=== PATIENT | female | born 1985 | race Caucasian/White ===

== ENCOUNTER 2020-01-12 09:56 | Emergency (ER) | payer OTHER, MEDICAID, SELFPAY ==
[2020-01-12 10:14] VITALS: BP 126/63; PULSE 99; RESP 18; TEMP 36.7; O2SAT 100
--- NOTE | 2020-01-12 10:19 | ED.URI ---
HPI - URI/Sore Throat General Chief Complaint: Upper Respiratory Infection Stated Complaint: sore throat Time Seen by Provider: 01/12/20 10:28 Source: patient History of Present Illness HPI Narrative: Patient presents with a sore throat. Patient denies any other symptoms no trouble swallowing no drooling. MD elicited complaint: sore throat Related Data Allergies Allergy/AdvReac Type Severity Reaction Status Date / Time amoxicillin Allergy Joint Pain Verified 01/12/20 10:14 Review of Systems Review of Systems: Narrative: CONSTITUTIONAL: Denies fever, chills, or sweats. EYES: Denies visual changes, redness, or discharge. ENT: Denies rhinorrhea, congestion, sore throat, or otalgia. CARDIOVASCULAR: Denies chest pain, palpitations, or edema. RESPIRATORY: Denies cough or dyspnea. GASTROINTESTINAL: Denies abdominal pain, nausea, vomiting, or diarrhea. GENITOURINARY: Denies dysuria or hematuria. SKIN: Denies rash or itching. MUSCULOSKELETAL: Denies back pain, joint pain, or myalgia. NEUROLOGIC: Denies headache, numbness, or weakness. PSYCHIATRIC: Denies anxiety or depression. PMFSH Comments At time of signature, agree with nursing past medical, surgical, social and family history. There is no relevant family history pertinent to the presenting complaint Exam Narrative: Exam Narrative: GENERAL: Well-appearing, well-nourished, and in no acute distress. HEAD: Normocephalic, atraumatic. EYES: PERRLA and EOMI. ENT: Nares clear, no rhinorrhea or epistaxis. Mucous membranes moist. Mild pharyngeal erythremia able to open mouth fully no trismus no drooling no exudates NECK: Supple. CHEST: Clear to auscultation. No respiratory distress. HEART: Regular rate and rhythm. No murmur heard. Normal peripheral pulses. ABDOMEN: Soft, nontender, nondistended, normal active bowel sounds. EXTREMITIES: Normal range of motion. No edema. SKIN: Warm, dry, no rash. NEURO: No focal deficits. Alert and oriented x3. Kevin Coma Scale Eye Opening: Spontaneous 4 Kevin Coma Scale Motor: Obeys Commands 6 [place] Coma Scale Verbal: Oriented 5 Kevin Coma Scale Total 15 Course Vital Signs Vital signs: Vital Signs Temperature 36.7 C 01/12/20 10:14 Pulse Rate 99 01/12/20 10:14 Respiratory Rate 18 10/03/20 10:14 Blood Pressure 126/63 01/12/20 10:14 Pulse Oximetry 100 01/12/20 10:14 Temperature 36.7 C 01/12/20 10:14 Pulse Rate 99 01/12/20 10:14 Respiratory Rate 18 01/12/20 10:14 Blood Pressure 126/63 01/12/20 10:14 Pulse Oximetry 100 01/12/20 10:14 MDM - URI/Sore Throat Differential Diagnosis Differential diagnosis: Likely upper respiratory infection, croup, otitis media, sinusitis, viral infection, bronchitis, influenza and pharyngitis Lab Data Labs: Strep Screen Presumptive Negative *(Reference Range: Negative)* Critical Care Time Critical Care Time Critical Care Time: No Discharge Plan Discharge Clinical Impression: Pharyngitis, Strep pharyngitis Patient Disposition: Home, Self-Care Condition: Stable Instructions: Antibiotic Form, Strep Throat (DC) Additional Instructions: Increase fluids especially juices and water [id number] cough and cold medicine of your choice for your symptoms Salt water gargles, throat lozenges or throat sprays as desired change toothbrush in 3-5 days Antibiotic as directed--finished the medication It may take the antibiotic 2-3 days to control the fever/symptoms -If you have any worsening of symptoms or any other concerns please go to the ED immediately. Prescriptions: New fluticasone propionate [Flonase Allergy Relief] 50 mcg/actuation spray,suspension 2 spray NASAL BID Qty: 9.9 RF: 0 loratadine [Claritin] 10 mg tablet 10 mg PO DAILY 14 Days Qty: 14 RF: 0 azithromycin [Zithromax Z-Ramesh] 250 mg tablet See Rx Instructions .ROUTE .COMPLEX Qty: 6 RF: 0 Follow-up/Referrals: Salcido,Nilda Acosta APN [Primary
== END 2020-01-12 10:31 | disposition home or self-care (01) ==
PROVIDERS: Emergency Provider Nurse Practitioner Family; PCP Nurse Practitioner Family
DX: J02.0 Streptococcal pharyngitis (principal)
CPT/HCPCS: 87081; 87880; 99213; G0463

== ENCOUNTER 2021-05-23 10:00 | Emergency (ER) | payer OTHER, MEDICAID, SELFPAY ==
[2021-05-23 10:06] VITALS: BP 114/89; PULSE 79; RESP 16; TEMP 37.1; O2SAT 100
--- NOTE | 2021-05-23 10:12 | ED.FEMALEGU ---
HPI - Female Genitourinary General Chief complaint: Urogenital-Female Stated complaint: Urinary Problem Time Seen by Provider: 05/23/21 10:15 Source: patient and family History of Present Illness HPI Narrative: PATIENT PRESENTS WITH URINARY FREQUENCY AND VOIDING SMALL AMOUNTS. NO BURNING WITH URINATION NO GROSS HEMATURIA NO FLANK PAIN NO HX OF KIDNEY STONES. PATIENT REPORTS SHE DID A TELEHEALTH VISIT YESTERDAY AND WAS PRESCRIBED MACROBID. PATIENT CONCERNED THAT NO UA WAS ORDERED AND STATES SHE HAS CHRONIC UTI. PATIENT REPORTS NAUSEA , DENIES ANY CONCERN FOR . Related Data Allergies Allergy/AdvReac Type Severity Reaction Status Date / Time amoxicillin Allergy Joint Pain Verified 05/23/21 10:16 Review of Systems Review of Systems: CONSTITUTIONAL: Denies fever, chills, or sweats. EYES: Denies visual changes, redness, or discharge. ENT: Denies rhinorrhea, congestion, sore throat, or otalgia. CARDIOVASCULAR: Denies chest pain, palpitations, or edema. RESPIRATORY: Denies cough or dyspnea. GASTROINTESTINAL: Denies abdominal pain, nausea, vomiting, or diarrhea. GENITOURINARY: Denies dysuria or hematuria. SKIN: Denies rash or itching. MUSCULOSKELETAL: Denies back pain, joint pain, or myalgia. NEUROLOGIC: Denies headache, numbness, or weakness. PSYCHIATRIC: Denies anxiety or depression. PMFSH Comments At time of signature, agree with nursing past medical, surgical, social and family history. There is no relevant family history pertinent to the presenting complaint Exam Narrative: GENERAL: Well-appearing, well-nourished, and in no acute distress. HEAD: Normocephalic, atraumatic. EYES: PERRLA and EOMI. ENT: Nares clear, no rhinorrhea or epistaxis. Mucous membranes moist. NECK: Supple. CHEST: Clear to auscultation. No respiratory distress. HEART: Regular rate and rhythm. No murmur heard. Normal peripheral pulses. ABDOMEN: Soft, nontender, nondistended, normal active bowel sounds. NO CVA TENDERNESS EXTREMITIES: Normal range of motion. No edema. SKIN: Warm, dry, no rash. NEURO: No focal deficits. Alert and oriented x3. [place] Coma Scale Eye Opening: Spontaneous 4 [place] Coma Scale Motor: Obeys Commands 6 Kevin Coma Scale Verbal: Oriented 5 Kevin Coma Scale Total 15 Course Course Level of Care: Express Care Visit MDM - Female Genitourinary MDM Narrative Medical decision making narrative: PATIENT WAS PRESCRIBED MACROBID YESTERDAY. CONTINUE MACROBID, IF CULTURE GROWS SENSITIVITY THAT IS NOT COVERED BY MACROBID WE WILL CALL AND CHANGE ANTIBIOTIC. Differential Diagnosis Differential diagnosis: Likely urinary tract infection, bacterial vaginosis, trichomoniasis, cervicitis, ovarian cyst, vaginitis, ruptured ovarian cyst, cyst of Bartholin's gland, cystitis, dysmenorrhea and other Critical Care Time Critical Care Time Critical Care Time: No Discharge Plan Discharge Clinical Impression: Urinary tract infection Patient Disposition: Home, Self-Care Condition: Stable Instructions: Antibiotic Form, Urinary Tract Infection in Women (DC) Additional Instructions: Increase fluids especially cranberry juice and water Avoid caffeine and carbonated beverages Antibiotic as directed MACROBID PRESCRIBED PER TELEHEALTH VISIT. CULTURE WILL BE COMPLETE IN 48-72 HOURS, IF WE NEED TO CHANGE ANTIBIOTIC WE WILL NOTIFY YOU Tylenol/ibuprofen for pain or fever Follow-up with her primary care provider if further problems or concerns Recheck if you have fever over 101, nausea and vomiting -If you have any worsening of symptoms or any other concerns please go to the ED immediately. Prescriptions: New ondansetron 4 mg tablet,disintegrating 4 mg PO Q8H PRN (Reason: nausea and vomiting) Qty: 10 RF: 0 Follow-up/Referrals: PHYSICIAN NOT ON STAFF,NONSTAFF [Primary Care Provider] -
== END 2021-05-23 10:32 | disposition home or self-care (01) ==
PROVIDERS: Emergency Provider Nurse Practitioner Family
DX: N39.0 Urinary tract infection, site not specified (principal)
CPT/HCPCS: 81003; 87077; 87086; 87186; 99213; G0463

== ENCOUNTER 2022-07-28 14:16 | Emergency (ER) | payer OTHER, MEDICAID, SELFPAY ==
[2022-07-28 14:28] VITALS: BP 114/62; PULSE 74; RESP 16; TEMP 36.6; O2SAT 100
--- NOTE | 2022-07-28 15:17 | ED.URI ---
HPI - URI/Sore Throat General Chief Complaint: Upper Respiratory Infection Stated Complaint: Chest Pain/Cough Source: patient and RN notes reviewed History of Present Illness HPI Narrative: 36 yo F presents to urgent care with a cough x 1 month and chest pressure and tightness since Tuesday. Pt states on Tuesday, she felt a spasm-like pain in over her midsternal chest. Pt states the spasm last briefly but she has had these pains over the last few days, randomly. Pt denies any SOB, numbness, tingling, fevers, chills, congestion, or abdominal pain. Related Data Allergies Allergy/AdvReac Type Severity Reaction Status Date / Time amoxicillin Allergy Joint Pain Verified 05/23/21 10:16 codeine Allergy Nausea Verified 07/28/22 14:28 Review of Systems Review of Systems: Pertinent positives and pertinent negatives per HPI. PMFSH Comments At the time of my signature, I reviewed and agree with the nursing past medical, surgical, social, and family history. There is no relevant family history pertinent to the patient complaint. Exam Narrative: GENERAL: This is a well-nourished, well-developed patient, in no apparent distress. HEAD: normocephalic, atraumatic. EYES: Sclera clear/white. Vision is grossly intact. EARS: External ears normal, auditory canals clear and without drainage, TMs normal without perforation. Hearing grossly intact. NOSE: External nose normal with no obvious nasal discharge, nares without redness, no rhinorrhea. THROAT: Mucous membranes moist, posterior pharynx clear. NECK: Neck supple, non-tender without lymphadenopathy, masses or thyromegaly. CARDIOVASCULAR: Regular rate and rhythm without murmurs, gallops, or rubs. RESPIRATORY: Clear to auscultation. Breath sounds equal bilaterally. No wheezes, rales, or rhonchi. GASTROINTESTINAL: Abdomen soft, non-tender, nondistended. Bowel sounds are active. No hepato-splenomegaly, or palpable masses. No guarding. SKIN: warm, intact with no suspicious lesions or rash, good texture and turgor. NEURO: awake, alert, and oriented to person, place and time. There were no obvious focal neurologic abnormalities. EXTREMITIES: No clubbing, cyanosis, or edema. No joint tenderness, effusion, or edema noted. BACK: Nontender without deformity or crepitance. No flank tenderness. Course Course Level of Care: Express Care Visit Vital Signs Vital signs: Vital Signs Temperature 97.9 F 07/28/22 14:28 Pulse Rate 74 07/28/22 14:28 Respiratory Rate 16 07/28/22 14:28 Blood Pressure 114/62 07/28/22 14:28 Pulse Oximetry 100 07/28/22 14:28 Oxygen Delivery Room Air 07/28/22 14:28 Temperature 97.9 F 07/28/22 14:28 Pulse Rate 74 07/28/22 14:28 Respiratory Rate 16 07/28/22 14:28 Blood Pressure 114/62 07/28/22 14:28 Pulse Oximetry 100 07/28/22 14:28 Oxygen Delivery Room Air 07/28/22 14:28 Reviewed MDM - URI/Sore Throat MDM Narrative Medical decision making narrative: Take the steroids as directed. May use the inhaler every 4 6 hours as needed for coughing. Go to emergency department with any new or worsening symptoms. Differential Diagnosis Differential diagnosis: Likely upper respiratory infection, bronchitis and other (Pneumonia) Critical Care Time Critical Care Time Critical Care Time: No Discharge Plan Discharge Clinical Impression: Bronchitis Patient Disposition: Home, Self-Care Condition: Stable Instructions: Acute Bronchitis (ED) Additional Instructions: Take the steroids as directed. May use the inhaler every 4 6 hours as needed for coughing. Go to emergency department with any new or worsening symptoms. Prescriptions: New prednisone 20 mg tablet 40 mg PO DAILY 5 Days Qty: 10 0RF albuterol sulfate 90 mcg/actuation HFA aerosol inhaler 2 puff inhalation QID PRN (Reason: shortness of breath or wheezing) Qty: 8.5 0RF Follow-up/Referrals: Omari,Nilda Acosta APN [Primary Care Provider] - Time of Disposition: 15:
== END 2022-07-28 15:44 | disposition home or self-care (01) ==
PROVIDERS: Emergency Provider Nurse Practitioner Family; PCP Nurse Practitioner Family
DX: J40 Bronchitis, not specified as acute or chronic (principal)
CPT/HCPCS: 99213; G0463